=== PATIENT | female | born 1980 | race Caucasian/White ===

== ENCOUNTER 2024-08-23 10:49 | Day surgery (SDC) | payer OTHER ==
[~2024-08-23] VITALS: Ht 162.6 cm; Wt 73.5 kg
[2024-08-23 11:40] LABS: HCG,QUAL RESULT NEGATIVE (NEGATIVE)
[2024-08-23 12:28] VITALS: O2SAT 100
[2024-08-23] MEDS ORDERED: DESFLURANE 15 MIN GAS INH ONE (14:00)
[2024-08-23] MEDS ORDERED: ONDANSETRON HCL 4 MG/2 ML VIAL ONE ×2 (14:00→16:51)
[2024-08-23] MEDS ORDERED: WATER FOR IRRIGATION,STERILE 1,000 ML IRRIG.SOLN IR ONE (14:00)
[2024-08-23] MEDS ORDERED: DEXAMETHASONE SOD PHOSPHATE 4 MG/ML VIAL ONE (14:00)
[2024-08-23] MEDS ORDERED: MIDAZOLAM HCL 2 MG/2 ML VIAL (VERSED) ONE (14:00)
[2024-08-23] MEDS ORDERED: ROCURONIUM BROMIDE 10 MG/ML (ZEMURON) ONE (14:00)
[2024-08-23] MEDS ORDERED: NS IRRIG SOLN 1000 ML IR ONE (14:00)
[2024-08-23] MEDS ORDERED: LR 1,000 ML IV.SOLN IV ONE (14:00)
[2024-08-23] MEDS ORDERED: PROPOFOL 200MG/ 20ML VIAL (DIPRIVAN) IV ONE (14:00)
[2024-08-23] MEDS ORDERED: fentaNYL CITRATE/PF 100 MCG/2 ML AMP ONE (15:01)
[2024-08-23] MEDS ORDERED: ONDANSETRON HCL 4 MG/2 ML VIAL IVP PRN (15:15)
[2024-08-23] MEDS ORDERED: NALOXONE HCL 0.4 MG/ML AMP (NARCAN) IVP PRN (15:15)
[2024-08-23] MEDS ORDERED: hydrALAZINE HCL 20 MG/ML VIAL IV PRN (15:15)
[2024-08-23] MEDS ORDERED: HYDROmorphone 1 MG/ML INJ. CARTRIDGE IVP PRN ×3 (15:15)
[2024-08-23] MEDS ORDERED: HYDROmorphone 1 MG/ML INJ. CARTRIDGE ONE (16:40)
[2024-08-23 18:46] VITALS: PULSE 68; RESP 20
[2024-08-23 20:58] VITALS: BP_SYST 135
== END 2024-08-23 17:58 | disposition home or self-care (01) ==
LOC: SDS 10:49 → SMU 11:01 → SDS 17:58
PROVIDERS: ATTEND Otolaryngology
DX: D38.5 Neoplasm of uncertain behavior of other respiratory organs (principal); H65.92 Unspecified nonsuppurative otitis media, left ear; J34.89 Other specified disorders of nose and nasal sinuses; H92.03 Otalgia, bilateral; H90.3 Sensorineural hearing loss, bilateral; Z79.899 Other long term (current) drug therapy
CPT/HCPCS: 30520; 30140; 69436; 84703; 88304; J1100; J2250; J2405; J2704; J3010; J1171; J7120; C1889